=== PATIENT | male | born 1930 | race Caucasian/White ===

== ENCOUNTER 2017-06-24 11:12 | Outpatient (RCR) | payer MEDICARE, BC | END 2017-09-22 | disposition still patient (30) | LOC: CARDREHAB | DX: Z48.812 Encounter for surgical aftercare following surgery on the circulatory system (principal); Z98.61 Coronary angioplasty status ==

== ENCOUNTER 2017-09-23 10:00 | Outpatient (RCR) | payer MEDICARE, BC | END 2017-12-22 | disposition home or self-care (01) | LOC: CARDREHAB | DX: Z48.812 Encounter for surgical aftercare following surgery on the circulatory system (principal); Z95.5 Presence of coronary angioplasty implant and graft; I25.2 Old myocardial infarction; I50.9 Heart failure, unspecified ==